=== PATIENT | male | born 1995 | race American Indian/Alaskan Native ===

== ENCOUNTER 2019-02-27 05:29 | Emergency (ER) | payer SELFPAY ==
[2019-02-27 05:37] VITALS: BP 128/82
[2019-02-27] MEDS ORDERED: IBUPROFEN 600 MG TAB PO ONE (08:44)
[2019-02-27] MEDS ORDERED: LET TOPICAL (LIDOCAINE/EPINEPHRINE/TETRACAINE) 3 ML TP ONE (08:44)
[2019-02-27] MEDS ORDERED: NEOMY 3.5 MG/BACIT 400 UNITS/POLY B 5000 UNITS/GM OINT PACKET TP ONE (08:44)
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
[2019-02-27] MEDS ORDERED: AMOXICILLIN 500 MG CAP PO ONE (08:45)
[2019-02-27] MEDS ORDERED: CHLORHEXIDINE MOUTHWASH 473ML MM ONE (10:00)
[2019-02-27] MEDS ORDERED: SODIUM CHLORIDE 0.9% IRR 500 ML BOTTLE IR ONE (10:00)
== END 2019-02-27 10:28 | disposition home or self-care (01) ==
LOC: ED 05:29
DX: S01.511A Laceration without foreign body of lip, initial encounter (principal); S05.32XA Ocular laceration without prolapse or loss of intraocular tissue, left eye, initial encounter; J45.909 Unspecified asthma, uncomplicated; F17.200 Nicotine dependence, unspecified, uncomplicated; F12.10 Cannabis abuse, uncomplicated; S00.512A Abrasion of oral cavity, initial encounter; W50.0XXA Accidental hit or strike by another person, initial encounter; Y93.89 Activity, other specified; Y92.89 Other specified places as the place of occurrence of the external cause; Y99.8 Other external cause status
CPT/HCPCS: A6250

== ENCOUNTER 2021-10-04 07:13 | Emergency (ER) | payer SELFPAY ==
[2021-10-04 07:20] VITALS: BP 149/85
--- NOTE | 2021-10-04 07:52 | XRay Report ---
LEFT HAND 3 VIEWS INDICATION: left hand pain. COMPARISON: None. IMPRESSION: There is diffuse soft tissue swelling. Nondisplaced oblique fracture is identified near the base of the third metacarpal. There appears to be intra-articular extension at the base of the th ird metacarpal and capitate. The remaining bony structures are intact. No significant joint patholog y. Signer Name: Carlos Alfredo Jr, MD Signed: 10/04/2021 7:47 AM Workstation Name: [id number]
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
== END 2021-10-04 19:00 | disposition home or self-care (01) ==
LOC: ED 07:13
DX: S62.92XA Unspecified fracture of left hand, initial encounter for closed fracture (principal); X58.XXXA Exposure to other specified factors, initial encounter; F17.200 Nicotine dependence, unspecified, uncomplicated; F12.90 Cannabis use, unspecified, uncomplicated; J45.909 Unspecified asthma, uncomplicated; Y93.89 Activity, other specified; Y92.89 Other specified places as the place of occurrence of the external cause; Y99.8 Other external cause status
CPT/HCPCS: 99283